=== PATIENT | female | born 1990 | race African-American/Black ===

== ENCOUNTER 2017-04-23 21:05 | Emergency (ER) | payer SELFPAY ==
[~2017-04-23] VITALS: Ht 154.9 cm; Wt 68.0 kg
[~2017-04-23 21:05] MED LIST: ATARAX PO; BACTRIM DS TABL1 TA1 PO; IBUPROFEN800 MG PO; KEFLEX500 MG PO; MACROBID100 MG PO; PERMETHRIN60 GM TP; PRENATAL1 TA1 PO
== END 2017-04-23 23:17 | disposition left against medical advice (07) ==
LOC: CED 21:05
DX: Z53.21 Procedure and treatment not carried out due to patient leaving prior to being seen by health care provider (principal)